=== PATIENT | male | born 1995 | race Two or more races ===

== ENCOUNTER 2016-11-13 14:01 | Observation (INO) | payer MEDICARE, MEDICAID ==
[~2016-11-13] VITALS: Ht 170.2 cm; Wt 90.7 kg
[2016-11-13] MEDS ORDERED: METOPROLOL TARTRATE 50 MG TAB ONE (14:08)
[2016-11-13] MEDS ORDERED: METOPROLOL TARTRATE 50 MG TAB PO ONE (14:15)
[2016-11-13 14:47] LABS: Basophils # (auto) 0.1 uL; Basophils % (auto) 0.5 % (0.0-2.0); Eosinophils # (auto) 0.1 uL; Eosinophils % (auto) 0.9 % (0.0-7.0); Hematocrit 50.6 % (41.0-53.0); Hemoglobin 17.4 g/dL (13.5-17.5); Lymphocytes # (auto) 3.7 uL; Mean Corpuscular Hgb Conc. 34.5 g/dL (32.0-36.0); Mean Platelet Volume 9.6 fL (6.9-10.8); Monocytes # (auto) 0.6 uL; Monocytes % (auto) 5.4 % (0.0-12.0); Neutrophils # (auto) 6.1 uL; Neutrophils % (auto) 58.2 % (37.0-80.0); Nucleated Red Blood Cells % 0.1 %; Platelet Count (auto) 223 10^3/uL (140-450); Red Cell Distribution Width 13.4 % (11.8-14.3); White Blood Cell 10.5 10^3/uL (4.4-10.8)
[2016-11-13 15:11] LABS: Albumin 4.4 g/dL (3.4-5.0); Alkaline Phosphatase 109 U/L (45-117); Anion Gap 7 (5-15); Aspartate Aminotransferase 41 U/L (15-37); BUN/Creatinine Ratio 12.8; Bilirubin, Total 0.5 mg/dL (0.2-1.0); Blood Urea Nitrogen 10 mg/dL (7-18); Calcium 9.9 mg/dL (8.5-10.1); Carbon Dioxide 28 mmol/L (21-32); Chloride 99 mmol/L (98-107); GFR African American 159 mL/min; GFR Non-African American 131 mL/min; Glucose 285 mg/dL (74-106); Potassium 4.4 mmol/L (3.5-5.1); Sodium 134 mmol/L (136-145); Total Protein 8.9 g/dL (6.4-8.2)
[2016-11-13] MEDS ORDERED: cloNIDine HCL 0.1 MG TAB PO ONE (21:15)
[2016-11-13] MEDS ORDERED: ALPRAZolam 0.5 MG TAB PO ONE (21:30)
[2016-11-13 23:02] LABS: INR 0.92 (0.9-1.15); Partial Thromboplastin Time 25.7 sec (22.64-33.71)
[2016-11-14 03:15] VITALS: BP 114/63
== END 2016-11-14 03:25 | disposition home or self-care (01) | DRG 305 ==
LOC: ER 14:01 → OVERFLOW 21:25 → ER 11-14 03:25
PROVIDERS: ADMIT Family Medicine; ATTEND Family Medicine
DX: I10 Essential (primary) hypertension (principal); F41.9 Anxiety disorder, unspecified; F84.0 Autistic disorder; R07.2 Precordial pain; Z82.49 Family history of ischemic heart disease and other diseases of the circulatory system
CPT/HCPCS: 36415; 71010; 80053; 83735; 84443; 84484; 85025; 85610; 85730; 99285; G0378

== ENCOUNTER 2018-03-27 10:17 | Emergency (ER) | payer MEDICARE, MEDICAID ==
[~2018-03-27] VITALS: Ht 172.7 cm; Wt 93.9 kg
[2018-03-27 10:23] VITALS: BP 173/93
== END 2018-03-27 12:26 | disposition home or self-care (01) ==
LOC: ER 10:20
CPT/HCPCS: 73130